=== PATIENT | female | born 1950 | race Caucasian/White ===

== ENCOUNTER → 2016-09-26 | Outpatient (CLI) | payer MEDICARE ==
[~2016-09-26] MED LIST: BUPIVACAINE HCL 0.5% 10 ML VIAL As Ordered ONE; CONRAY-43 43% 50ML VIAL (Q9960) As Ordered ONE; methylPREDNISolone SUSP 40 MG/ML (DEPO-medrol) VIAL (J1030) As Ordered ONE
--- NOTE | 2016-09-26 16:41 | REP ---
RIGHT HIP INJECTION: The procedure was performed under the direct supervision of Dr. Rosa. The benefits and risks including but not limited to pain, infection, bleeding, and anaphylaxis were explained to the patient and informed consent was obtained. The right femoral neck was localized using fluoroscopic guidance. The skin was prepped and draped in a sterile fashion. 1% Lidocaine was used as a local anesthetic. Using fluoroscopic guidance a 22-gauge spinal needle was inserted and then advanced to the femoral neck. 0.5 mL of Conray-43 was injected to verify placement. 7 mL of a solution containing 5 mL of 0.5% Marcaine and 2 mL Depo-Medrol 40 mg was injected. The needle was then removed. The patient tolerated the procedure well and there were no immediate complications. 3 second of fluoroscopic time was utilized for this procedure. Reviewed by JT Cheema 09/27/2016 03:22 PEdited and Signed by Ruben Rosa MD 09/27/2016 04:54 P
== END ==
LOC: M RADPRO 09:59
PROVIDERS: ATTEND Orthopaedic Surgery
DX: M16.11 Unilateral primary osteoarthritis, right hip (principal); M25.551 Pain in right hip
CPT/HCPCS: 20610; 77002; J1030; Q9960

== ENCOUNTER → 2017-11-25 | Outpatient (CLI) | payer MEDICARE ==
[~2017-11-25] MED LIST changes: +BUPIVACAINE HCL 0.5% 10 ML VIAL As Ordered; -BUPIVACAINE HCL 0.5% 10 ML VIAL As Ordered ONE; +CONRAY-43 43% 50ML VIAL (Q9960) As Ordered; -CONRAY-43 43% 50ML VIAL (Q9960) As Ordered ONE; +methylPREDNISolone SUSP 40 MG/ML (DEPO-medrol) VIAL (J1030) As Ordered; -methylPREDNISolone SUSP 40 MG/ML (DEPO-medrol) VIAL (J1030) As Ordered ONE
== END ==
LOC: M RADPRO 09:17
DX: M25.551 Pain in right hip (principal); M16.0 Bilateral primary osteoarthritis of hip
CPT/HCPCS: 20610

== ENCOUNTER → 2017-12-02 | Outpatient (CLI) | payer MEDICARE | LOC: M RADPRO 09:59 | DX: M25.552 Pain in left hip (principal); M16.0 Bilateral primary osteoarthritis of hip | CPT/HCPCS: 20610 ==

== ENCOUNTER → 2018-10-22 | Outpatient (CLI) | payer MEDICARE ==
[~2018-10-22] MED LIST changes: -BUPIVACAINE HCL 0.5% 10 ML VIAL As Ordered; +BUPIVACAINE HCL 0.5% 10 ML VIAL As Ordered ONE; -CONRAY-43 43% 50ML VIAL (Q9960) As Ordered; +CONRAY-43 43% 50ML VIAL (Q9960) As Ordered ONE; -methylPREDNISolone SUSP 40 MG/ML (DEPO-medrol) VIAL (J1030) As Ordered; +methylPREDNISolone SUSP 40 MG/ML (DEPO-medrol) VIAL (J1030) As Ordered ONE
--- NOTE | 2018-10-22 17:17 | REP ---
Left hip injection The procedure was performed under the direct supervision of Dr. Rosa. The benefits and risks including but not limited to pain infection and bleeding and anaphylaxis were explained to the patient and informed consent was obtained. The left femoral neck was localized using fluoroscopic guidance. The skin was prepped and draped in a sterile fashion. 1% lidocaine was used as a local anesthetic. Using fluoroscopic guidance a 22-gauge spinal needle was inserted and advanced to the femoral neck. 0.5 ml of Conray 43 was injected to verify placement. 7 ml of a solution containing 5 ml of 0.5% Marcaine and 2 ml of Depo-Medrol 40 mg was injected. The needle was then removed. The patient tolerated the procedure well and there were no immediate complications. Less than six seconds of fluoro time was utilized for this procedure. Reviewed by JT Cheema 10/22/2018 04:57 P Electronically Signed by Ruben Rosa MD 10/22/2018 05:09 P
== END ==
LOC: M RADPRO 10:13
PROVIDERS: ATTEND Physician Assistant
DX: M25.552 Pain in left hip (principal); M16.12 Unilateral primary osteoarthritis, left hip
CPT/HCPCS: 20610; 77002; J1030; Q9960

== ENCOUNTER 2019-03-15 09:04 | Emergency (ER) | payer MEDICARE ==
[~2019-03-15] VITALS: Ht 149.9 cm; Wt 90.9 kg
[2019-03-15 09:05] VITALS: BP 127/58
[2019-03-15] MEDS ORDERED: NS 1,000 ML IV SCH (09:53)
[2019-03-15] MEDS ORDERED: LISI-542 PO (10:26)
[2019-03-15] MEDS ORDERED: CHOL4POW4 PO (10:26)
[2019-03-15] MEDS ORDERED: LANTINJ4 SC (10:26)
[2019-03-15] MEDS ORDERED: JARD1TAB3 PO (10:26)
[2019-03-15] MEDS ORDERED: PARO20TA4 PO (10:26)
[2019-03-15] MEDS ORDERED: HYDR200T3 PO (10:26)
[2019-03-15] MEDS ORDERED: LOVA40TA PO (10:26)
[2019-03-15] MEDS ORDERED: JANU100T PO (10:26)
[2019-03-15] MEDS ORDERED: METF-791 PO (10:26)
[2019-03-15 11:29] LABS: BASO # 0.1 10^3/uL (0.0-0.2); BASO % 0.9 % (0.0-1.0); EOS # 0.2 10^3/uL (0.0-0.50); EOS % 1.9 % (0.0-3.0); HEMATOCRIT 40.6 % (36.0-47.0); LYMPH # 1.6 10^3/uL (1.5-4.5); LYMPH % 20.6 % (24.0-44.0); MEAN CORPUSCULAR HEMOGLOBIN 28.3 pg (27.0-33.0); MEAN CORPUSCULAR VOLUME 88.5 fl (80.0-96.0); MONO # 0.7 10^3/uL (0.0-0.8); MONO % 8.5 % (0.0-5.0); NEUTROPHILS # 5.4 10^3/uL (1.8-7.7); NEUTROPHILS % 67.3 % (36.0-66.0); PLATELET COUNT, AUTOMATED 246 10^3/uL (150-450); RED BLOOD COUNT 4.59 10^6/uL (4.00-5.40)
[2019-03-15] MEDS ORDERED: VANC125C3 PO (11:44)
[2019-03-15] MEDS ORDERED: VANCOMYCIN ORAL SOL 250MG/5ML ORAL SYRINGE PO SCH ×2 (11:45→12:00)
[2019-03-15 12:02] LABS: ALBUMIN 3.7 GM/DL (3.2-5.2); BILIRUBIN,DIRECT 0.1 MG/DL (0.0-0.2); BILIRUBIN,TOTAL 0.4 MG/DL (0.2-1.0); TOTAL PROTEIN 6.7 GM/DL (6.4-8.2)
== END 2019-03-15 12:32 | disposition home or self-care (01) ==
LOC: M ED 09:04
DX: A04.72 Enterocolitis due to Clostridium difficile, not specified as recurrent (principal); R01.1 Cardiac murmur, unspecified; E11.9 Type 2 diabetes mellitus without complications; K21.9 Gastro-esophageal reflux disease without esophagitis; M19.90 Unspecified osteoarthritis, unspecified site; Z79.4 Long term (current) use of insulin; Z79.899 Other long term (current) drug therapy; Z88.8 Allergy status to other drugs, medicaments and biological substances; Z88.5 Allergy status to narcotic agent; Z88.6 Allergy status to analgesic agent

== ENCOUNTER → 2019-06-21 | Outpatient (CLI) | payer MEDICARE ==
[~2019-06-21] MED LIST changes: -BUPIVACAINE HCL 0.5% 10 ML VIAL As Ordered ONE; +CHOL4POW4 PO; +HYDR200T3 PO; +JANU100T PO; +JARD1TAB3 PO; +LANTINJ4 SC; +LIDOCAINE 1% MDV 20ML VIAL As Ordered ONE; +LISI-542 PO; +LOVA40TA PO; +METF-791 PO; +PARO20TA4 PO; +VANC125C3 PO; +methylPREDNISolone 80MG/ML SUSP 1ML VIAL (J1040) As Ordered ONE; -methylPREDNISolone SUSP 40 MG/ML (DEPO-medrol) VIAL (J1030) As Ordered ONE
--- NOTE | 2019-06-21 16:58 | REP ---
LEFT HIP INJECTION The procedure was performed under the direct supervision of Dr. Rosa. The benefits and risks including but not limited to pain infection bleeding and anaphylaxis were explained to the patient and informed consent was obtained. The left femoral neck was localized using fluoroscopic guidance. The skin was prepped and draped in a sterile fashion. 1% lidocaine was used as a local anesthetic. Using fluoroscopic guidance a 22-gauge spinal needle was inserted and advanced to the femoral neck. 0.5 ml of Conray 43 was injected to verify placement. 5 ml of a solution containing 4 ml of 1% lidocaine and 1 ml of Depo-Medrol 80 mg injected. The needle was then removed. The patient tolerated the procedure well and there were no immediate complications. 0.1 minutes of fluoroscopy time was utilized for this procedure. Electronically Signed by JT Cheema 06/21/2019 04:47 P Electronically Signed by Ruben Rosa MD 06/21/2019 04:49 P
== END ==
LOC: M RADPRO 08:50
PROVIDERS: ATTEND Physician Assistant
DX: M25.552 Pain in left hip (principal); M16.10 Unilateral primary osteoarthritis, unspecified hip
CPT/HCPCS: 20610; 77002; J1040; Q9960

== ENCOUNTER → 2019-07-05 | Outpatient (CLI) | payer MEDICARE ==
[~2019-07-05] MED LIST changes: -CONRAY-43 43% 50ML VIAL (Q9960) As Ordered ONE; -LIDOCAINE 1% MDV 20ML VIAL As Ordered ONE; -methylPREDNISolone 80MG/ML SUSP 1ML VIAL (J1040) As Ordered ONE
--- NOTE | 2019-07-05 13:57 | REP ---
Reason For Exam/Comment: Primary osteoarthritis of the right hip Procedure: Right hip arthrocentesis The procedure was performed by JT De Luna, under the direct supervision of Dr. Lincoln. The benefits and risks including but not limited to pain, infection, bleeding and anaphylaxis were explained to the patient and informed consent was obtained both verbally and written. Directly prior to the start of the procedure, a formal timeout was completed in the procedure room. The right glenohumeral joint space was localized using fluoroscopic guidance. The skin was prepped and draped in the usual sterile fashion. 5 mL of 1% lidocaine 10 mg/ml was used as a local anesthetic. Using fluoroscopic guidance a 22-gauge spinal needle was inserted and advanced to the right glenohumeral joint space . 1 mL of Conray 43 was injected to verify needle placement. A 5 mL solution containing a 4 mL 1% lidocaine 10 mg/ml and 1 ml of Depo-Medrol 80 mg was injected into the joint. The needle was removed and hemostasis was achieved. The patient tolerated the procedure well and there were no immediate complications. 0.1 minutes of fluoroscopy time was utilized for this procedure. Some fluoroscopic images are performed with last image hold technology. These images require no additional radiation. Reviewed by JT Stahl 07/05/2019 01:27 P Electronically Signed by Todd Lincoln MD 07/05/2019 01:49 P
== END ==
LOC: M RADPRO 09:30
PROVIDERS: ATTEND Physician Assistant
DX: M16.11 Unilateral primary osteoarthritis, right hip (principal)

== ENCOUNTER → 2020-03-02 | Outpatient (REF) | payer MEDICARE ==
[~2020-03-02] MED LIST changes: -METF-791 PO; +METF-838 PO
[2020-04-19 20:58] LABS: MALB URINE SIEMENS 5.4 MG/L; MAU/CREAT RATIO 9.1 MCG/MG (0.0-30.0)
== END ==
LOC: M LAB REF 08:39
PROVIDERS: ATTEND Nurse Practitioner Family
DX: E11.65 Type 2 diabetes mellitus with hyperglycemia (principal)

== ENCOUNTER → 2020-12-22 | Outpatient (CLI) | payer MEDICARE ==
[~2020-12-22] MED LIST changes: +ISOVUE-300 61% 50ML VIAL As Ordered ONE; +LIDOCAINE 1% MDV 20ML VIAL As Ordered ONE; -LISI-542 PO; +LISI-898 PO; +methylPREDNISolone 80MG/ML SUSP 1ML VIAL (J1040) As Ordered ONE
--- NOTE | 2020-12-22 15:45 | REP ---
INDICATION: LT HIP PAIN. COMPARISON: None TECHNIQUE: The procedure was performed by JT De Luna, under the direct supervision of Dr. Rosa. The benefits and risks of the procedure were explained to the patient, and an informed consent was obtained. Directly prior to the start of the procedure, a formal time-out was completed in the procedure room. The left femoral neck joint space was localized using fluoroscopic guidance. The skin was prepped and draped in a sterile fashion. Approximately 5 mL of 1% Lidocaine 10 mg/ml was used as a local anesthetic. Using fluoroscopic guidance, a #22 gauge spinal needle was inserted and advanced into the left femoral neck joint space. Approximately 1 mL of Isovue 300 was injected to verify placement. Six mL of a solution containing 5 mL 1% lidocaine 10 mg/ml and 1 mL Depo-Medrol 80 milligrams/milliliter was injected into the joint space. The needle was removed and hemostasis was achieved. FINDINGS: The patient tolerated the procedure well and there were no immediate complications. IMPRESSION: 1. Fluoroscopic guided left hip intra-articular injection. 0.1 minutes of fluoroscopy time was utilized for this procedure. Some fluoroscopic images are performed with last image hold technology. These images require no additional radiation. <Electronically signed by Ammy Herzog > 12/22/20 1227 <Electronically signed by Ruben Rosa > 12/22/20 0500
== END ==
LOC: M RADPRO 10:33
PROVIDERS: ATTEND Orthopaedic Surgery
DX: M25.552 Pain in left hip (principal)
CPT/HCPCS: 20610; 77002; J1040; Q9967

== ENCOUNTER → 2021-01-05 | Outpatient (CLI) | payer MEDICARE ==
--- NOTE | 2021-01-05 17:17 | REP ---
INDICATION: RT HIP PAIN. COMPARISON: None TECHNIQUE: The procedure was performed by JT De Luna, under the direct supervision of Dr. Rosa. The benefits and risks of the procedure were explained to the patient, and an informed consent was obtained. Directly prior to the start of the procedure, a formal time-out was completed in the procedure room. The right femoral neck joint space was localized using fluoroscopic guidance. The skin was prepped and draped in a sterile fashion. Approximately 5 mL of 1% Lidocaine 10 mg/ml was used as a local anesthetic. Using fluoroscopic guidance, a #22 gauge spinal needle was inserted and advanced into the right femoral neck joint space. Approximately 1 mL of Isovue 300 was injected to verify placement. Six mL of a solution containing 5 mL 1% lidocaine 10 mg/ml and 1 mL Depo-Medrol 80 milligrams/milliliter was injected into the joint space. The needle was removed and hemostasis was achieved. FINDINGS: The patient tolerated the procedure well and there were no immediate complications. IMPRESSION: 1. Fluoroscopically guided intra-articular right hip pain injection. 0.1 minutes of fluoroscopy time was utilized for this procedure. Some fluoroscopic images are performed with last image hold technology. These images require no additional radiation. <Electronically signed by Ammy Herzog > 01/05/21 1241 <Electronically signed by Ruben Rosa > 01/05/21 [id number]
== END ==
LOC: M RADPRO 10:48
PROVIDERS: ATTEND Orthopaedic Surgery
DX: M25.551 Pain in right hip (principal); M16.0 Bilateral primary osteoarthritis of hip; Z88.5 Allergy status to narcotic agent; Z88.8 Allergy status to other drugs, medicaments and biological substances
CPT/HCPCS: 20610; 77002; J1040; Q9967

== ENCOUNTER → 2022-02-18 | Outpatient (REF) | payer MEDICARE ==
[~2022-02-18] MED LIST changes: +CHOL4POW26 PO; -CHOL4POW4 PO; -ISOVUE-300 61% 50ML VIAL As Ordered ONE; -LIDOCAINE 1% MDV 20ML VIAL As Ordered ONE; -LISI-898 PO; +LISI5TAB11 PO; -methylPREDNISolone 80MG/ML SUSP 1ML VIAL (J1040) As Ordered ONE
[2022-02-18 18:24] LABS: CREATININE, URINE 19.1 MG/DL; MALB URINE SIEMENS < 5.0 MG/L; MAU/CREAT RATIO 26.1 MCG/MG (0.0-30.0)
== END ==
LOC: M LAB REF 16:47
PROVIDERS: ATTEND Nurse Practitioner Family
DX: E11.65 Type 2 diabetes mellitus with hyperglycemia (principal)